=== PATIENT | female | born 1965 | race Caucasian/White ===

== ENCOUNTER 2016-09-07 11:13 | Emergency (ER) | payer OTHER ==
[2016-09-07 11:44] VITALS: BP 133/81
--- NOTE | 2016-09-07 12:08 | UC ---
Cardiac HPI - HPI Summary HPI Summary: The patient comes in today for: 1. Chest pain: Onset: 5 days. Palliative/provocative: Learning forward makes it worse. Laying back also makes it worse. Sitting straight up makes it feel better. If she lays on her left side feels like she is squeezing the lungs. Quality: Squeezing sensation (only when laying down). Region: Left upper chest with radiation to the neck and back. Severity: 0/10 with sitting up. Time: Comes and goes depending on positioni. Associated symptoms: Fevers: She has not taken her temperature, but she has night sweats. CAD risk factors: Smoker: (+), Previous heart disease: (+)-one stroke and 2 VA, HTN: (+), DM: (-), Cholesterol: "Normal," Fam Hx: Father had VA age 50 Dyspnea: Now "a little bit" while sitting up. * - History of Current Complaint Chief Complaint: UCRespiratory Stated Complaint: CHEST CONGESTION Time Seen by Provider: 09/07/16 12:01 Hx Obtained From: Patient, Family/Freight Trucker - Allergy/Home Medications Allergies/Adverse Reactions: Allergies Allergy/AdvReac Type Severity Reaction Status Date / Time Cefdinir [From Omnicef] Allergy Rash Verified 09/07/16 12:19 Hydrocodone Allergy Rash Verified 09/07/16 12:19 Sodium Benzoate Allergy Rash Verified 09/07/16 12:19 [From Omnicef] Home Medications: Home Medications Esomeprazole(NF) [NEXium(NF)] 20 mg PO DAILY 09/07/16 [History Confirmed ] Losartan Potassium 100 mg PO DAILY 09/07/16 [History Confirmed 09/07/16] PMH/Surg Hx/FS Hx/Imm Hx Previously Healthy: No - episodic dependent edema. Endocrine History Of: Reports: Thyroid Disease - She states her Rx is vitamin D , but no throid rx. Denies: Diabetes, Hyperthyroidism, Hypothyroidism, Dyslipidemia Cardiovascular History Of: Reports: Cardiac Disorders, Hypertension Denies: Pacemaker/ICD, Myocardial Infarction, Congestive Heart Failure, Atrial Fibrillation, Deep Vein Thrombosis, Bleeding Disorders Respiratory History Of: Reports: COPD - She is on inhalers (Symbicort and another one). Denies: Asthma, Bronchitis, Pneumonia, Pulmonary Embolism GI/ History Of: Reports: Gastroesophageal Reflux Denies: Ulcer, Gastrointestinal Bleed, Gall Bladder Disease, Kidney Stones, Diverticulitis, Renal Disease, Urosepsis Neurological History Of: Reports: CVA, Migraine - She will take naproxen for this as needed. Denies: TIA, Dementia, Seizures Psychological History Of: Denies: Anxiety, Depression, Bipolar Disorder, Schizophrenia, Post Traumatic Stress Disorder Cancer History Of: Denies: Lung Cancer, Colorectal Cancer, Breast Cancer, Prostate Cancer, Cervical Cancer Other History Of: Anticoagulant Therapy - Baby aspirin a day. Negative For: HIV, Hepatitis B, Hepatitis C - Surgical History Surgical History: Yes Surgery Procedure, Year, and Place: Sinus surgery 08/2016 - Family History Known Family History: Positive: Cardiac Disease, Hypertension - Social History Occupation: Unemployed Alcohol Use: None Substance Use Type: None Smoking Status (MU): Heavy Every Day Tobacco Smoker Amount Used/How Often: 1/2 ppd Length of Time of Smoking/Using Tobacco: started age 13 Review of Systems Constitutional: Negative Skin: Negative Eyes: Negative ENT: Negative Respiratory: Negative, Cough Cardiovascular: Chest Pain Gastrointestinal: Negative Genitourinary: Negative All Other Systems Reviewed And Are Negative: Yes Physical Exam Triage Information Reviewed: Yes Appearance: Well-Appearing, Well-Nourished, Pain Distress - She holds herself still and avoid sitting back or leaning forward. Vital Signs: Initial Vital Signs Temp 97.6 F 09/07/16 11:39 Pulse 64 09/07/16 11:39 Resp 14 09/07/16 11:39 BP 133/81 09/07/16 11:39 Pulse Ox 99 09/07/16 11:39 Vital Signs Reviewed: Yes Eyes: Positive: Conjunctiva Clear. Negative: Discharge ENT: Positive: Hearing grossly normal. Negative: Pharyngeal erythema, Nasal congestion, Nasal drainage, TM bulging, TM dull, TM red, Tonsillar swelling, Tonsillar exudate Dental: Negative: Gross Decay/Caries @, Dental Fracture @ Neck: Positive: Supple, Nontender, No Lymphadenopathy. Negative: Nuchal Rigidity Respiratory: Positive: Chest non-tender, Lungs clear, No respiratory distress, No accessory muscle use. Negative: Crackles, Wheezing Cardiovascular: Positive: RRR, No Murmur Abdomen Description: Positive: Nontender, No Organomegaly, Soft. Negative: Distended, Guarding Musculoskeletal: Positive: Strength Intact, ROM Intact, Other: - She had tenderness to palpation of her left anterior chest. Neurological: Positive: Alert, Muscle Tone Normal Psychological: Positive: Age Appropriate Behavior, Consolable Skin: Negative: rashes, breakdown Diagnostics - Laboratory Diagnostic Studies Completed/Ordered: IMPRESSION: 1. SMALL LEFT PLEURAL EFFUSION. 2. FOCAL AREA OF INCREASED DENSITY AT THE RIGHT LUNG APEX MOST CONSISTENT WITH EITHER. SCARRING OR A PULMONARY NODULE. RECOMMEND A CT OF THE CHEST WITHOUT CONTRAST FOR FURTHER. EVALUATION. - Assessment/Plan Course Of Treatment: The patient was told that my recommendation is that she go to the ER for a more indepth evaluation. She absolutely refused. She was told that her CXR showed a left pleural effusion and possible right upper lung nodule. Even with this information, she said that she was not going to the ER. She only wanted us to give her some pain medication and "something" for sleep. - Clinical Impression Provider Diagnoses: Chest pain, etiology undertermined. Left pleura effusion. Costochondritis. Dyspnea possibly related to left pleural effusion. Discharge - Discharge Plan Condition: Stable Disposition: AGAINST MEDICAL ADVICE Patient Education Materials: Chest Pain (ED), Pleural Effusion (ED), Pulmonary Nodules (ED) Additional Instructions: If you are not going to the ER and only want to work up your complain on an outpatient basis, please see Dr. Martel or Dr. Hernandez for consideration for tapping your chest for a sample of this fluid. If you get worse, please be seen sooner by the ER.
[2016-09-07] MEDS ORDERED: Ketorolac INJ* 60 MG/2 ML VIAL IM ONE (12:18)
--- NOTE | 2016-09-07 12:42 | RAD ---
INDICATION: Chest pain. COMPARISON: There are no prior studies available for comparison. TECHNIQUE: Dual-energy PA and lateral views of the chest were obtained. FINDINGS: The heart is within normal limits in size. Mediastinal and hilar contours appear within normal limits. There is a focal area of increased density at the right lung apex measuring 1.5 cm in size possibly representing scarring although a pulmonary nodule cannot be excluded. The lungs are otherwise clear. There is a small left pleural effusion. IMPRESSION: 1. SMALL LEFT PLEURAL EFFUSION. 2. FOCAL AREA OF INCREASED DENSITY AT THE RIGHT LUNG APEX MOST CONSISTENT WITH EITHER SCARRING OR A PULMONARY NODULE. RECOMMEND A CT OF THE CHEST WITHOUT CONTRAST FOR FURTHER EVALUATION.
== END 2016-09-07 13:51 | disposition left against medical advice (07) ==
LOC: UCCORT 11:13
DX: R07.89 Other chest pain (principal); J90 Pleural effusion, not elsewhere classified; M94.0 Chondrocostal junction syndrome [Tietze]; R06.00 Dyspnea, unspecified; Z88.1 Allergy status to other antibiotic agents; Z88.5 Allergy status to narcotic agent; Z88.8 Allergy status to other drugs, medicaments and biological substances
CPT/HCPCS: 71020; 96372; 99203; G0463; J1885

== ENCOUNTER 2018-01-29 08:24 | Day surgery (SDC) | payer OTHER ==
--- NOTE | 2018-01-26 15:08 | HP ---
HISTORY AND PHYSICAL: DATE OF ADMISSION: 01/29/2018. HISTORY OF PRESENT ILLNESS: Estefania is an active 52-year-old woman who has developed left forefoot pain into her first MTP joint. 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 She is scheduled at this time for medial sesamoidectomy. She understands the nature of the surgery, the rationale for the surgery, and the expected recovery. PAST MEDICAL HISTORY: Negative for cardiac issues. She does have mild blood pressure, mild hypercholesterolemia. She has some restrictive airway disease, mild asthma. No abdominal issues other than some reflux. No neurological issues. Some mild depression and anxiety noted. MEDICATIONS: Estefania is on the following medications: 1. Meloxicam. 2. Rizatriptan 10 mg twice a day for headache. 3. Pramipexole dihydrochloride 0.25 mg every 6 hours as needed for sleep. 4. Topiramate 100 mg twice a day. 5. Losartan 100 mg per day. 6. Cyclobenzaprine 5 mg p.o. as needed. 7. Spiriva Respimat 2.5 mcg as needed. 8. Furosemide 20 mg 1.5 tabs every 3 days. 9. Ondansetron 8 mg every 8 hours. 10. Albuterol 0.63 mg/3 mL as needed. ALLERGIES: She is allergic to OXYCODONE and OMNICEF. REVIEW OF SYSTEMS: Negative for fevers, chills, headache, chest pain, significant shortness of breath, abdominal distress, urination issues, neurological issues, lightheadedness, dizziness, and depression and anxiety. PHYSICAL EXAMINATION GENERAL: Estefania is a healthy active 52-year-old female with appropriate mood and affect. NECK: She has a supple neck. LUNGS: Her chest exam is clear to auscultation. I do not hear any wheezing today. No rales. CARDIAC: Shows a regular rate. No extra sounds noted. ABDOMEN: Soft, nontender. EXTREMITIES: Shows her to have a thready dorsal pulse, 5/5 range of motion, neutral alignment, intact sensation, intact skin envelope, isolated tenderness at the medial sesamoid with firm palpation. Also pain recreated with forced dorsiflexion and plantar flexion. IMPRESSION: The patient with avascular necrosis, osteochondritis medial sesamoid. PLAN: Elective sesamoidectomy, left foot. [id number]/[facility] #: [id number] [facility] CENTERKatty
[~2018-01-29 08:24] MED LIST: Buffered Lidocaine 0.9% SYRIN* 5 ML/SYR SYRINGE INTRADERM ONE; Vancomycin 1500 MG IV - x ONCE IVPB ONE
[2018-01-29] MEDS ORDERED: Lidocaine 2% PF* 10 ML AMP ONE (10:40)
[2018-01-29] MEDS ORDERED: fentaNYL* 50 MCG/ML 2 ML VIAL (100 MCG VIAL) ONE (10:58)
[2018-01-29] MEDS ORDERED: Midazolam* 1 MG/ML 5 ML VIAL (5 MG) ONE (10:58)
[2018-01-29] MEDS ORDERED: Propofol* 10 MG/ML 20 ML BTL IV PUSH ONE (11:05)
[2018-01-29] MEDS ORDERED: DiMENhydriNATE IV* 50 MG/ML VIAL IV PUSH PRN (11:18)
[2018-01-29] MEDS ORDERED: fentaNYL* 50 MCG/ML 2 ML VIAL (100 MCG VIAL) IV PRN (11:18)
[2018-01-29] MEDS ORDERED: Naloxone* 0.4 MG/ML 1 ML VIAL IV PRN (11:18)
[2018-01-29] MEDS ORDERED: Acetaminophen TAB* 325 MG PO PRN (11:18)
[2018-01-29] MEDS ORDERED: Ondansetron INJ* 2 MG/ML VIAL IV PRN (11:18)
[2018-01-29] MEDS ORDERED: oxyCODONE TAB* 5 MG TAB PO PRN (11:18)
[2018-01-29] MEDS ORDERED: Bupivacaine 0.5% SDV PF* 30ML VIAL ONE (11:34)
[2018-01-29 12:56] VITALS: BP 150/81
--- NOTE | 2018-01-30 10:28 | OP ---
DATE OF OPERATION: 01/29/18 - [facility] DATE OF : 65 ATTENDING SURGEON: Dr. Taurus Crandall. BLOCK BREAKER OPERATOR: CECI Lares PRE-OP DIAGNOSIS: Osteonecrotic, osteochondrotic left medial sesamoid. POST-OP DIAGNOSIS: Osteonecrotic osteochondrotic left medial sesamoid. OPERATIVE PROCEDURE: Left medial sesamoidectomy. DESCRIPTION OF PROCEDURE: The patient was taken to the operating room where a 4 -cm longitudinal incision was made over the medial first MTP joint. We created a plantar flap just outside the capsule, and then incised the capsule along the medial longitudinal border of the medial sesamoid. We were then able to shell out the medial sesamoid from the surrounding capsule and the flexor brevis tendon and the sesamoid being sent to Pathology. We then irrigated and closed the tendon with 0 Vicryl repair, subcutaneous with 3-0 Vicryl, and nylon for the skin, and a compression dressing applied. [id number]/[facility] #: [id number] KAYLYNN
== END 2018-01-29 13:16 | disposition home or self-care (01) ==
LOC: OR 08:24
PROVIDERS: ATTEND Orthopaedic Surgery
DX: M87.872 Other osteonecrosis, left ankle (principal); E78.00 Pure hypercholesterolemia, unspecified; J45.909 Unspecified asthma, uncomplicated; Z88.5 Allergy status to narcotic agent; Z88.8 Allergy status to other drugs, medicaments and biological substances
CPT/HCPCS: 88304; 88311; J2001; J2250; J2704; J3010; J3370

== ENCOUNTER 2018-11-20 19:20 | Emergency (ER) | payer BC ==
[2018-11-20 20:23] VITALS: BP 122/62
--- NOTE | 2018-11-20 21:06 | UC ---
UC General HPI - HPI Summary HPI Summary: pt had sinus congestion about 3 weeks before seeing her pcp who tx with amoxicillin for sinusitis. she did not improve and sinuses are worse. illness duration is now about 5 weeks. hx sinusitis and this is the same but worse. self tx with nedi pot. now feels feverish and has a congested cough as well. no cp or sob. - History of Current Complaint Chief Complaint: UCGeneralIllness Stated Complaint: BILATERAL EAR ISSUE Time Seen by Provider: 11/20/18 20:57 Hx Obtained From: Patient Onset/Duration: Gradual Onset Timing: Constant Pain Intensity: 8 - Allergy/Home Medications Allergies/Adverse Reactions: Allergies Allergy/AdvReac Type Severity Reaction Status Date / Time cefdinir Allergy Rash Verified 11/20/18 20:09 clindamycin Allergy Anaphylatic Verified 11/20/18 20:09 Shock hydrocodone Allergy Rash Verified 11/20/18 20:09 Home Medications: Home Medications Aspirin [[place] Aspirin] 81 mg PO DAILY 11/20/18 [History Confirmed 11/20/18 ] Cholecalciferol TAB* [Vitamin D TAB*] 50,000 unit PO DAILY 11/20/18 [History Confirmed 11/20/18] Nitroglycerin TAB 0.4 MG* 0.4 mg SL . NEEDED PRN 11/20/18 [History Confirmed 11/20/18] Varenicline 0.5 mg Tab(Nf) [Chantix 0.5 MG TAB(NF)] 0.5 mg PO BID 11/20/18 [ History Confirmed 11/20/18] PMH/Surg Hx/FS Hx/Imm Hx - Additional Past Medical History Additional PMH: OM with tubes. Cardiovascular History: Hypertension, Myocardial Infarction Respiratory History: COPD Psychological History: Anxiety Other History Of: Anticoagulant Therapy - Baby aspirin a day. Negative For: HIV, Hepatitis B, Hepatitis C - Surgical History Surgical History: Yes Surgery Procedure, Year, and Place: Sinus surgery 08/2016. LEFT WRIST TENDON REPAIR 2001. [address] OGDEN. REVERSE TUBAL LIGATION 1997. TUBAL LIGATION 1993. Left great toe sx - Family History Known Family History: Positive: Cardiac Disease, Hypertension - Social History Occupation: Employed Full-time Alcohol Use: Occasionally Alcohol Amount: 1 X WEEK Substance Use Type: None Smoking Status (MU): Former Smoker Type: Cigarettes Amount Used/How Often: 1/2 ppd Length of Time of Smoking/Using Tobacco: 40YRS Have You Smoked in the Last Year: No When Did the Patient Quit Smoking/Using Tobacco: 2017 Household Exposure Type: Cigarettes Review of Systems All Other Systems Reviewed And Are Negative: Yes Constitutional: Positive: Fever, Chills ENT: Positive: Ear Ache, Nasal Discharge, Sinus Congestion, Sinus Pain/ Tenderness Respiratory: Positive: Cough Physical Exam Triage Information Reviewed: Yes Appearance: Well-Appearing Vital Signs: Initial Vital Signs Temp 97.9 F 11/20/18 20:16 Pulse 71 11/20/18 20:16 Resp 22 11/20/18 20:16 BP 122/62 11/20/18 20:16 Pulse Ox 100 11/20/18 20:16 Vital Signs Reviewed: Yes Eyes: Positive: Conjunctiva Clear ENT: Positive: Pharynx normal, Nasal congestion, TMs normal - tubes in place x2 , Sinus tenderness, Other - L maxilla with mild swelling.. Negative: Nasal drainage Neck: Positive: Supple, Nontender, No Lymphadenopathy Respiratory: Positive: No respiratory distress, Decreased breath sounds. Negative: Crackles, Rhonchi, Wheezing Cardiovascular: Positive: RRR, No Murmur Abdomen Description: Positive: Nontender Bowel Sounds: Positive: Present Musculoskeletal: Positive: ROM Intact Neurological: Positive: Alert Psychological: Positive: Age Appropriate Behavior Skin Exam: Normal Course/Dx - Differential Dx - Multi-Symptom Differential Diagnoses: Other - c/w sinusitis and tx failure on amoxicillin. risk of c-diff and tendinopathy from repeat antibiotic with Levaquin d/w pt. pt willing to take risk thus will tx with Levaquin and po steroid plus f/u with her ENT. - Diagnoses Provider Diagnosis: Sinusitis Discharge - Sign-Out/Discharge Documenting (check all that apply): Patient Departure All imaging exams completed and their final reports reviewed: No Studies - Discharge Plan Condition: Stable Disposition: HOME Prescriptions: Levofloxacin TAB* [Levaquin TAB*] 500 mg PO DAILY #5 tab methylPREDNISolone [Medrol Dosepak 4 MG*] 0 mg PO .SEE IDANIA INSTRUCTION #1 tab Patient Education Materials: Sinusitis (ED) Forms: *Work Release Referrals: Florencio Ogden MD [Medical Doctor] - 7 Days - Billing Disposition and Condition Condition: STABLE Disposition: Home - Attestation Statements Provider Attestation: Per institutional requirements, I have reviewed the chart, however, I was not consulted specifically or made aware of this patient by the midlevel provider. I did not personally evaluate, interact with , or disposition this patient.
[2018-11-20] MEDS ORDERED: predniSONE TAB* 20 MG PO ONE (21:09)
[2018-11-20] MEDS ORDERED: Levofloxacin TAB* 500 MG PO ONE (21:09)
== END 2018-11-20 21:15 | disposition home or self-care (01) ==
LOC: UCCORT 19:20
DX: J32.9 Chronic sinusitis, unspecified (principal); I25.2 Old myocardial infarction; I10 Essential (primary) hypertension; Z79.82 Long term (current) use of aspirin; J44.9 Chronic obstructive pulmonary disease, unspecified; F41.9 Anxiety disorder, unspecified; Z96.22 Myringotomy tube(s) status; Z82.49 Family history of ischemic heart disease and other diseases of the circulatory system; Z88.1 Allergy status to other antibiotic agents; Z88.5 Allergy status to narcotic agent; Z87.891 Personal history of nicotine dependence
CPT/HCPCS: 99212; G0463; J7512

== ENCOUNTER 2019-05-22 16:50 | Emergency (ER) | payer BC, MEDICAID ==
--- OUTSIDE RECORDS SUMMARY | 2019-05-22 17:00 | XMS REPORT | Continuity of Care Document ---
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 DISORDER (Renamed from NONDEPENDENT TOBACCO USE DISORDER), RESTLESS LEG SYNDROME Medication Order 29-Dec-2014 9:35 To 29-Dec-2014 10:42 Encounter Diagnosis: COPD (CHRONIC OBSTRUCTIVE PULMONARY DISEASE) [facility] Historical Summary 16-Dec-2014 15:07 To 16-Dec-2014 15:08 [facility] Medication Order 10-Oct-2014 15:54 To 10-Oct-2014 16:19 Encounter Diagnosis: COPD (CHRONIC OBSTRUCTIVE PULMONARY DISEASE) [facility] Office Office Visit 19-Dec-2013 11:35 To 19-Dec-2013 12:47 Encounter Reason: COPD - The last clinic visit was 12 month(s) ago. No changes in management were made at the last visi [facility] Office t. Symptoms include dyspnea on exertion, productive cough and clear sputum production, while symptoms do not include dyspnea at rest, wheezing or colored sputum production. The episodes occur daily. The patient describes this as moderate in severity and unchanged. Symptoms are exacerbated by activity and recumbency. Symptoms are relieved by inhaler use, use of a nebulizer and rest. Associated symptoms include leg edema, while associated symptoms do not include fever, hemoptysis , orthopnea, upper respiratory infection symptoms, chest pain or altered mental status. Current treatment includes inhaled a lbuterol, inhaled short-acting beta-2 agonists, inhaled long-acting beta-2 agonists, inhaled anticholinergics and inhaled corticosteroids. By report there is good compliance with treatment, good toleran ce of treatment and fair symptom control (getting over bronchitis). Pertinent medical history includes smoking (currently), while pertinent medical history does not include oxygen dependency, steroid de pendency, asthma, prior intubation and ventilator therapy, congestive heart failure or lung cancer. The patient is currently able to do activities of daily living with limitations, unable to work and able to do housework with limitations. Encounter Diagnosis: COPD (CHRONIC OBSTRUCTIVE PULMONARY DISEASE), ORAL ANNA, TOBACCO USE DISORDER (Renamed from NONDEPENDENT TOBACCO USE DISORDER) Office Visit 06-Dec-2012 15:26 To 06-Dec-2012 16:03 Encounter Reason: COPD - The last clinic visit was 6 month(s) ago. No changes in management were made at the last visit [facility] . Symptoms include dyspnea on exertion, productive cough and clear sputum production, while symptoms do not include dyspnea at rest, wheezing or colored sputum production. The episodes occur daily. The patient describes this as moderate in severity and unchanged. Symptoms are exacerbated by activity and recumbency. Symptoms are relieved by inhaler use, use of a nebulizer and rest. Associated symptoms include leg edema, while associated symptoms do not include fever, hemoptysis, orthopnea, upper respiratory infection symptoms, chest pain or altered mental status. Current treatment includes inhaled al buterol, inhaled short-acting beta-2 agonists, inhaled long-acting beta-2 agonists, inhaled anticholinergics, inhaled corticosteroids, oral corticosteroids (tapers by PCP) and antibiotics. By report the re is good compliance with treatment, good tolerance of treatment and fair symptom control. Pertinent medical history includes smoking (currently), while pertinent medical history does not include oxyge n dependency, steroid dependency, asthma, prior intubation and ventilator therapy, congestive heart failure or lung cancer. The patient is currently able to do activities of daily living with limitation s, unable to work and able to do housework with limitations. Encounter Diagnosis: COPD (CHRONIC OBSTRUCTIVE PULMONARY DISEASE) (496), RESTLESS LEGS (333.94), TOBACCO USE DISORDER (Renamed from NONDEPENDENT TOBACCO USE DISORDER) Medication Order 12-Oct-2012 11:33 To 12-Oct-2012 12:25 Encounter Diagnosis: COPD (CHRONIC OBSTRUCTIVE PULMONARY DISEASE) (496) [facility] Medication Order 08-Oct-2012 8:27 To 08-Oct-2012 9:00 Encounter Diagnosis: COPD (CHRONIC OBSTRUCTIVE PULMONARY DISEASE) (496) [facility] Office Medication Order 02-Oct-2012 18:09 To 03-Oct-2012 15:01 Encounter Diagnosis: COPD (CHRONIC OBSTRUCTIVE PULMONARY DISEASE) (496) [facility] Office Medication Order 20-Jul-2012 17:03 To 20-Jul-2012 17:04 Encounter Diagnosis: COPD (CHRONIC OBSTRUCTIVE PULMONARY DISEASE) (496) [facility] Office Office Visit 12-Apr-2012 12:06 To 12-Apr-2012 12:32 Encounter Reason: Dyspnea - The onset of the dyspnea has been gradual and has been occurring in an intermittent pattern [facility] . The course has been constant. The dyspnea is mild to moderate. The dyspnea occurs on exertion. There has been no associated anxiety, chest pain, fever / chills, hemoptysis, palpitations or wheezing. She has had a right heart cath at [facility] by Dr Underwood . Encounter Diagnosis: COPD (CHRONIC OBSTRUCTIVE PULMONARY DISEASE) (496) Medication Order 16-Jan-2012 10:59 To 16-Jan-2012 11:05 Encounter Diagnosis: COPD (CHRONIC OBSTRUCTIVE PULMONARY DISEASE) (496) [facility] Historical Summary 26-Dec-2011 8:08 To 26-Dec-2011 8:09 [facility] Office Office Visit 17-Aug-2011 14:07 To 17-Aug-2011 15:26 Encounter Reason: Dyspnea - The onset of the dyspnea has been gradual and has been occurring in a persistent pattern fo [facility] r 5 years. The course has been increasing. The dyspnea is moderate. The dyspnea occurs on exertion, occurs when walking and occurs when climbing stairs. The symptoms have been associated with chest pain , while the symptoms have not been associated with anxiety, fever / chills, hemoptysis, palpitations or wheezing. Encounter Diagnosis: DYSPNEA (786.09) Medication Order 19-Jul-2011 16:36 To 19-Jul-2011 16:38 Encounter Diagnosis: COPD (CHRONIC OBSTRUCTIVE PULMONARY DISEASE) (496) [facility] Office Office Visit 17-May-2011 10:12 To 17-May-2011 11:23 Encounter Reason: COPD - The last clinic visit was 6 month(s) ago. No changes in management were made at the last visit [facility] . Symptoms include dyspnea on exertion, wheezing, productive cough, clear sputum production and colored sputum production (occasionally yellow), while symptoms do not include dyspnea at rest. The episod es occur daily. The patient describes this as moderate in severity and worsening. Symptoms are exacerbated by activity and recumbency. Symptoms are relieved by inhaler use, use of a nebulizer and rest. Associated symptoms include leg edema (increasing lately), orthopnea, upper respiratory infection symptoms (twice by PCP) and altered mental status, while associated symptoms do not include fever, hemop tysis or chest pain. Current treatment includes inhaled albuterol, inhaled short-acting beta-2 agonists, inhaled long-acting beta-2 agonists, inhaled anticholinergics, inhaled corticosteroids, oral winter icosteroids (tapers by PCP) and antibiotics. By report there is good compliance with treatment, good tolerance of treatment and fair symptom control. Pertinent medical history includes smoking (has quit ), while pertinent medical history does not include oxygen dependency, steroid dependency, asthma, prior intubation and ventilator therapy, congestive heart failure or lung cancer. The patient is curren tly able to do activities of daily living with limitations, unable to work and able to do housework with limitations. Encounter Diagnosis: COPD (CHRONIC OBSTRUCTIVE PULMONARY DISEASE) (496), DYSPNEA (786.09) Historical Summary 09-May-2011 9:57 To 09-May-2011 10:13 [facility] Historical Summary 07-May-2011 13:24 To 07-May-2011 13:25 Encounter Reason: COPD [facility] Historical Summary 21-Apr-2011 12:40 To 21-Apr-2011 12:44 [facility] Office Payers [facility] [address] [address] [facility] [address] Group Number: NONE tel: FANNY [place] [address] tel:
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
[2019-05-22 17:21] VITALS: BP 139/66
--- NOTE | 2019-05-22 17:54 | UC ---
Respiratory Complaint HPI - HPI Summary HPI Summary: 53-year-old female who caught a cold from her niece and has had symptoms of head congestion moist cough and wheezing over the past 3 days. She is a past smoker having stopped 2 months ago and has been diagnosed with COPD. She denies any fever or chills. She has been using a nebulizer at home. - History of Current Complaint Chief Complaint: UCRespiratory Stated Complaint: COUGH Time Seen by Provider: 05/22/19 17:53 Hx Obtained From: Patient ?: No Onset/Duration: Gradual Onset Severity Initially: Mild Severity Currently: Moderate Pain Intensity: 9 Character: Cough: Nonproductive Aggravating Factors: Deep Breaths Alleviating Factors: Bronchodilator Associated Signs And Symptoms: Positive: URI, Nasal Congestion, Sinus Discomfort - Allergies/Home Medications Allergies/Adverse Reactions: Allergies Allergy/AdvReac Type Severity Reaction Status Date / Time cefdinir Allergy Rash Verified 05/22/19 17:11 clindamycin Allergy Anaphylatic Verified 05/22/19 17:11 Shock hydrocodone Allergy Rash Verified 05/22/19 17:11 Home Medications: Home Medications Cholesterol Med 1 tab QPM 05/22/19 [History] PMH/Surg Hx/FS Hx/Imm Hx Previously Healthy: Yes Endocrine History: Thyroid Disease Cardiovascular History: Hypertension Respiratory History: COPD Other History Of: Anticoagulant Therapy - Baby aspirin a day. Negative For: HIV, Hepatitis B, Hepatitis C - Surgical History Surgical History: Yes Surgery Procedure, Year, and Place: Sinus surgery 08/2016. LEFT WRIST TENDON REPAIR 2001. [address]UBE [address] OGDEN. REVERSE TUBAL LIGATION 1997. TUBAL LIGATION 1993. Left great toe sx - Family History Known Family History: Positive: Cardiac Disease, Hypertension - Social History Alcohol Use: Occasionally Alcohol Amount: 1 X WEEK Substance Use Type: None Smoking Status (MU): Former Smoker Type: Cigarettes Amount Used/How Often: 1/2 ppd Length of Time of Smoking/Using Tobacco: 40YRS Have You Smoked in the Last Year: No When Did the Patient Quit Smoking/Using Tobacco: 2017 Household Exposure Type: Cigarettes Review of Systems All Other Systems Reviewed And Are Negative: Yes ENT: Positive: Nasal Discharge, Sinus Congestion, Sinus Pain/Tenderness Respiratory: Positive: Cough Is Patient Immunocompromised?: No Physical Exam Triage Information Reviewed: Yes Appearance: Well-Appearing, No Pain Distress, Well-Nourished Vital Signs: Initial Vital Signs Temp 97.5 F 05/22/19 17:14 Pulse 72 05/22/19 17:14 Resp 20 05/22/19 17:14 BP 139/66 05/22/19 17:14 Pulse Ox 97 05/22/19 17:14 Vital Signs Reviewed: Yes Eyes: Positive: Conjunctiva Clear ENT: Positive: Pharynx normal, Nasal congestion, Nasal drainage - Clear nasal coryza, TMs normal, Uvula midline Neck: Positive: Supple, Nontender, No Lymphadenopathy Respiratory: Positive: No respiratory distress, No accessory muscle use, Rhonchi - Scattered mild wheezing and mild rhonchi. Good Air movement throughout., Wheezing Cardiovascular: Positive: RRR, No Murmur, Pulses Normal, Brisk Capillary Refill Musculoskeletal Exam: Normal Neurological Exam: Normal Psychological Exam: Normal Skin Exam: Normal Respiratory Course/Dx - Course Course Of Treatment: Chest x-ray: Negative as interpreted by myself and Dr. Crowell. DuoNeb treatment: Patient had a looser cough and felt better after the DuoNeb treatment. The patient is to continue her albuterol treatments at home every 4 hours. I'm starting her on doxycycline 100 mg by mouth twice a day 10 days and a course of tapering prednisone to follow-up with her primary care provider on Monday or Monday if no improvement. - Differential Dx/Diagnosis Provider Diagnosis: Bronchitis Discharge ED - Sign-Out/Discharge Documenting (check all that apply): Patient Departure All imaging exams completed and their final reports reviewed: No - Discharge Plan Condition: Fair Disposition: HOME Prescriptions: DOXYcycline CAP(*) [DOXYcycline 100MG CAP(*)] 100 mg PO BID 10 Days #20 cap predniSONE TAB* [Deltasone 10 MG TAB*] 10 mg PO DAILY 12 Days #30 tab Patient Education Materials: Acute Bronchitis (ED), Pneumonia (ED) Forms: *Work Release Referrals: John Gomes MD [Primary Care Provider] - Additional Instructions: Increase fluids. No dairy products, antacids, multivitamins or your calcium carbonate 2 hours before you take doxycycline and 2 hours after the you take doxycycline however you want to take the doxycycline with food. Continue to use her albuterol nebulizer at home every 4 hours as needed. Definite follow- up with your primary care provider if no movement by Monday. Go to the emergency room if you develop any worsening of symptoms or difficulty breathing. - Billing Disposition and Condition Condition: FAIR Disposition: Home - Attestation Statements Provider Attestation: Per institutional requirements, I have reviewed the chart, however, I was not consulted specifically or made aware of this patient by the midlevel provider. I did not personally evaluate, interact with , or disposition this patient.
[2019-05-22] MEDS ORDERED: Albuterol/Ipratropium NEB.SOL* Albuterol 2.5 MG/Ipratropium 0.5 MG 3 ML INH ONE (17:59)
--- NOTE | 2019-05-23 07:59 | UC ---
- Progress Note Progress Note: wet read correct Course/Dx - Diagnoses Provider Diagnoses: Bronchitis Discharge ED - Sign-Out/Discharge Documenting (check all that apply): Post-Discharge Follow Up All imaging exams completed and their final reports reviewed: Yes - Discharge Plan Condition: Fair Disposition: HOME Prescriptions: DOXYcycline CAP(*) [DOXYcycline 100MG CAP(*)] 100 mg PO BID 10 Days #20 cap predniSONE TAB* [Deltasone 10 MG TAB*] 10 mg PO DAILY 12 Days #30 tab Patient Education Materials: Acute Bronchitis (ED), Pneumonia (ED) Forms: *Work Release Referrals: John Gomes MD [Primary Care Provider] - Additional Instructions: Increase fluids. No dairy products, antacids, multivitamins or your calcium carbonate 2 hours before you take doxycycline and 2 hours after the you take doxycycline however you want to take the doxycycline with food. Continue to use her albuterol nebulizer at home every 4 hours as needed. Definite follow- up with your primary care provider if no movement by Monday. Go to the emergency room if you develop any worsening of symptoms or difficulty breathing. - Billing Disposition and Condition Condition: FAIR Disposition: Home
== END 2019-05-22 18:59 | disposition home or self-care (01) ==
LOC: UCCORT 16:50
DX: J44.9 Chronic obstructive pulmonary disease, unspecified (principal); Z87.891 Personal history of nicotine dependence; I10 Essential (primary) hypertension
CPT/HCPCS: 71046; 99212; A9270-GY; G0463